=== PATIENT | female | born 1975 | race Caucasian/White ===

== ENCOUNTER → 2017-09-21 | Outpatient (CLI) | payer OTHER | LOC: M.RAD 09:18 | DX: Z12.31 Encounter for screening mammogram for malignant neoplasm of breast (principal) ==

== ENCOUNTER → 2018-09-20 | Outpatient (CLI) | payer OTHER | LOC: M.RAD 10:21 | DX: Z12.31 Encounter for screening mammogram for malignant neoplasm of breast (principal) ==

== ENCOUNTER → 2019-10-10 | Outpatient (CLI) | payer OTHER | LOC: M.RAD 11:06 | PROVIDERS: ATTEND Family Medicine | DX: Z12.31 Encounter for screening mammogram for malignant neoplasm of breast (principal) ==

== ENCOUNTER → 2020-10-17 | Outpatient (CLI) | payer OTHER | LOC: M.RAD 10:09 | PROVIDERS: ATTEND Family Medicine | DX: Z12.31 Encounter for screening mammogram for malignant neoplasm of breast (principal); N64.89 Other specified disorders of breast ==